=== PATIENT | female | born 1930 | race Caucasian/White ===

== ENCOUNTER 2017-04-19 16:06 | Inpatient (IN) | payer MEDICARE, MEDICAID ==
[~2017-04-19] VITALS: Ht 157.5 cm; Wt 42.4 kg
[2017-04-19 16:06] VITALS: BP 134/64
[2017-04-19 16:52] LABS: BILIRUBIN NEGATIVE (NEGATIVE); BLOOD TRACE-INTACT (NEGATIVE); CLARITY CLOUDY (CLEAR); COLOR YELLOW (YELLOW); GLUCOSE NEGATIVE (NEGATIVE); KETONE NEGATIVE (NEGATIVE); LEUKO ESTERASE 3+ (NEGATIVE); NITRITE NEGATIVE (NEGATIVE); PROTEIN 1+ (NEGATIVE)
[2017-04-19 17:02] LABS: RBC 0-2 rbc/hpf (0-2); WBC TNTC wbc/hpf (0-5)
[2017-04-19 17:03] LABS: BACTERIA 4+; URINE REFLEX COMMENT YES (NO)
[2017-04-19 17:12] VITALS: BP 124/62
[2017-04-19 17:21] LABS: BASO % 0.5 % (0.0-1.0); EOS % 0.4 % (1.0-4.0); HEMATOCRIT 40.7 % (37.0-47.0); HEMOGLOBIN 13.5 g/dl (12.0-16.0); LYMPH # 1.2 10*3/uL (1.3-4.4); LYMPH % 13.8 % (27.0-41.0); MEAN CELL VOLUME 97.1 fl (81.0-99.0); MEAN CORPUSCULAR HGB 32.2 pg (27.0-31.0); MEAN CORPUSCULAR HGB CONC 33.2 g/dl (33.0-37.0); MEAN PLATELET VOLUME 10.1 fl (9.6-12.3); MONO # 0.5 10*3/uL (0.1-1.0); MONO % 5.4 % (3.0-9.0); NEUT # 6.8 10*3/uL (2.3-7.9); NEUT % 79.7 % (47.0-73.0); PLATELET COUNT AUTOMATED 209 10*3/uL (130-400); RED BLOOD COUNT 4.19 10*6/uL (4.10-5.10); RED CELL DISTRI WIDTH 14.5 % (0-14.5); WHITE BLOOD COUNT 8.6 10*3/uL (4.8-10.8)
[2017-04-19 17:28] LABS: INTERNATIONAL NORM RATIO 1.1 (2.0-3.5); PROTHROMBIN TIME 11.4 SECONDS (9.0-12.4)
[2017-04-19 17:37] LABS: ALBUMIN 2.9 gm/dl (3.1-4.5); ALKALINE PHOSPHATASE 158 U/L (45-117); BILIRUBIN, TOTAL 0.5 mg/dl (0.2-1.0); BUN 12 mg/dl (7-24); CARBON DIOXIDE 31 mmol/L (21-32); CHLORIDE 101 mmol/L (98-107); EST GLOM FILT AFRICAN AMERICAN > 60 ml/min; GLUCOSE 235 mg/dL (65-99); POTASSIUM 3.1 mmol/L (3.5-5.1); SGOT/AST 45 IU/L (3-35); SGPT/ALT 44 U/L (12-78); SODIUM 140 mmol/L (136-145); TOTAL PROTEIN 6.8 gm/dL (6.4-8.2)
[2017-04-19 17:38] LABS: TROPONIN I < 0.015 ng/ml (<0.045)
[2017-04-19 19:13] VITALS: BP 138/69
[2017-04-19 20:43] VITALS: BP 164/79
[2017-04-19 21:00] VITALS: BP 164/62
[2017-04-19 21:20] VITALS: BP 164/62
[2017-04-20] VITALS (7 sets, daily range): BP systolic 118–160; BP diastolic 31–60
[2017-04-20 06:18] LABS: HEMOGLOBIN A1c 7.7 % (4.8-5.6)
[2017-04-20 06:27] LABS: ALBUMIN 2.8 gm/dl (3.1-4.5); ALKALINE PHOSPHATASE 160 U/L (45-117); BILIRUBIN, TOTAL 0.4 mg/dl (0.2-1.0); BUN 9 mg/dl (7-24); CARBON DIOXIDE 34 mmol/L (21-32); CHLORIDE 103 mmol/L (98-107); CHOLESTEROL 167 mg/dL (<200); EST GLOM FILT AFRICAN AMERICAN > 60 ml/min; FREE T4 1.06 ng/dl (0.76-1.46); GLUCOSE 229 mg/dL (65-99); HDL CHOLESTEROL 92 mg/dl (40-60); LDL CHOLESTEROL 53 mg/dL (9-159); MAGNESIUM 1.5 mg/dL (1.5-2.1); PHOSPHOROUS 2.3 mg/dL (2.5-4.9); POTASSIUM 2.8 mmol/L (3.5-5.1); SGOT/AST 31 IU/L (3-35); SGPT/ALT 44 U/L (12-78); SODIUM 143 mmol/L (136-145); TOTAL PROTEIN 6.9 gm/dL (6.4-8.2); TRIGLYCERIDES 108 mg/dl (<150); VLDL CHOLESTEROL 22 mg/dL (6-40)
[2017-04-20 06:31] LABS: THYROID STIM HORMONE (HS) 0.632 uIU/ml (0.358-4.75)
[2017-04-20 06:33] LABS: BASO # 0.1 10*3/uL (0.0-0.1); BASO % 0.9 % (0.0-1.0); EOS # 0.1 10*3/uL (0.0-0.4); EOS % 1.7 % (1.0-4.0); HEMOGLOBIN 13.6 g/dl (12.0-16.0); LYMPH # 1.1 10*3/uL (1.3-4.4); LYMPH % 17.3 % (27.0-41.0); MEAN CELL VOLUME 97.9 fl (81.0-99.0); MEAN CORPUSCULAR HGB 31.7 pg (27.0-31.0); MEAN CORPUSCULAR HGB CONC 32.4 g/dl (33.0-37.0); MONO # 0.4 10*3/uL (0.1-1.0); MONO % 5.8 % (3.0-9.0); NEUT # 4.9 10*3/uL (2.3-7.9); PLATELET COUNT AUTOMATED 223 10*3/uL (130-400); RED BLOOD COUNT 4.29 10*6/uL (4.10-5.10); RED CELL DISTRI WIDTH 14.6 % (0-14.5); WHITE BLOOD COUNT 6.6 10*3/uL (4.8-10.8)
[2017-04-20 06:47] LABS: FOLIC ACID 5.29 ng/mL (>5.38); VITAMIN D, 25-HYDROXY 11.1 ng/mL (30-100)
[2017-04-20 07:11] LABS: INTERNATIONAL NORM RATIO 1.1 (2.0-3.5); PROTHROMBIN TIME 11.4 SECONDS (9.0-12.4)
[2017-04-20] MEDS ORDERED: PRINIVIL10 MG PO (09:49)
[2017-04-20] MEDS ORDERED: NEXIUM40 MG PO (09:50)
[2017-04-20] MEDS ORDERED: ZOLOFT50 MG PO (09:50)
[2017-04-20] MEDS ORDERED: ANASTROZOLE1 M1 PO (09:50)
[2017-04-20] MEDS ORDERED: OXYCONTIN10 M1 PO (09:51)
[2017-04-20] MEDS ORDERED: DILANTIN100 MG PO (09:53)
[2017-04-20] MEDS ORDERED: LIPITOR80 MG PO (09:53)
[2017-04-20] MEDS ORDERED: ARICEPT10 M1 PO (09:56)
[2017-04-21] VITALS: BP 119/55
[2017-04-21 05:59] LABS: BASO # 0.1 10*3/uL (0.0-0.1); EOS # 0.1 10*3/uL (0.0-0.4); EOS % 2.7 % (1.0-4.0); HEMATOCRIT 36.2 % (37.0-47.0); HEMOGLOBIN 11.9 g/dl (12.0-16.0); LYMPH # 1.4 10*3/uL (1.3-4.4); LYMPH % 26.5 % (27.0-41.0); MEAN CORPUSCULAR HGB 32.9 pg (27.0-31.0); MEAN CORPUSCULAR HGB CONC 32.9 g/dl (33.0-37.0); MEAN PLATELET VOLUME 10.1 fl (9.6-12.3); MONO # 0.4 10*3/uL (0.1-1.0); MONO % 7.1 % (3.0-9.0); NEUT # 3.3 10*3/uL (2.3-7.9); NEUT % 62.7 % (47.0-73.0); PLATELET COUNT AUTOMATED 189 10*3/uL (130-400); RED BLOOD COUNT 3.62 10*6/uL (4.10-5.10); RED CELL DISTRI WIDTH 14.8 % (0-14.5); WHITE BLOOD COUNT 5.2 10*3/uL (4.8-10.8)
[2017-04-21 06:30] LABS: BUN 8 mg/dl (7-24); CARBON DIOXIDE 29 mmol/L (21-32); CHLORIDE 107 mmol/L (98-107); EST GLOM FILT AFRICAN AMERICAN > 60 ml/min; GLUCOSE 229 mg/dL (65-99); MAGNESIUM 1.4 mg/dL (1.5-2.1); PHOSPHOROUS 2.1 mg/dL (2.5-4.9); SODIUM 143 mmol/L (136-145)
[2017-04-21 06:31] LABS: POTASSIUM 3.8 mmol/L (3.5-5.1)
[2017-04-21 08:00] VITALS: BP 118/62
[2017-04-21 12:00] VITALS: BP 165/69
[2017-04-21 16:00] VITALS: BP 146/65
[2017-04-21 20:00] VITALS: BP 112/50
[2017-04-22] VITALS: BP 107/53
[2017-04-22 07:02] LABS: BASO # 0.1 10*3/uL (0.0-0.1); EOS # 0.2 10*3/uL (0.0-0.4); EOS % 4.6 % (1.0-4.0); HEMATOCRIT 39.8 % (37.0-47.0); HEMOGLOBIN 12.7 g/dl (12.0-16.0); LYMPH # 1.6 10*3/uL (1.3-4.4); LYMPH % 33.5 % (27.0-41.0); MEAN CELL VOLUME 100.5 fl (81.0-99.0); MEAN CORPUSCULAR HGB 32.1 pg (27.0-31.0); MEAN CORPUSCULAR HGB CONC 31.9 g/dl (33.0-37.0); MEAN PLATELET VOLUME 10.4 fl (9.6-12.3); MONO # 0.1 10*3/uL (0.1-1.0); MONO % 2.3 % (3.0-9.0); NEUT # 2.8 10*3/uL (2.3-7.9); NEUT % 58.2 % (47.0-73.0); PLATELET COUNT AUTOMATED 202 10*3/uL (130-400); RED BLOOD COUNT 3.96 10*6/uL (4.10-5.10); WHITE BLOOD COUNT 4.8 10*3/uL (4.8-10.8)
[2017-04-22 07:30] LABS: BUN 9 mg/dl (7-24); CARBON DIOXIDE 27 mmol/L (21-32); CHLORIDE 107 mmol/L (98-107); GLUCOSE 154 mg/dL (65-99); POTASSIUM 3.5 mmol/L (3.5-5.1); SODIUM 142 mmol/L (136-145)
[2017-04-22 07:37] LABS: EST GLOM FILT AFRICAN AMERICAN > 60 ml/min; PHOSPHOROUS 1.9 mg/dL (2.5-4.9)
[2017-04-22 08:00] VITALS: BP 146/50
[2017-04-22] MEDS ORDERED: D-1000 185 MG-11 TAB PO (09:52)
[2017-04-22] MEDS ORDERED: NATURE'S BLEND F1 MG PO (09:52)
[2017-04-22] MEDS ORDERED: OXYBUTYNIN CHLOR5 MG PO (09:52)
[2017-04-22] MEDS ORDERED: ZYVOX600 MG PO (09:54)
[2017-04-22 12:00] VITALS: BP 155/60
[2017-04-22 16:00] VITALS: BP 147/61
[2017-04-22 20:00] VITALS: BP 150/68
[2017-04-23] VITALS: BP 102/54; BP 97/53
[2017-04-23 08:00] VITALS: BP 112/90
== END 2017-04-23 11:29 | disposition other institution (70) | DRG 689 ==
LOC: ED 16:06 → 5E 19:52 → EDHOLD 19:52 → 5E 20:07
PROVIDERS: Family Medicine; Internal Medicine Nephrology; Nurse Practitioner Family
DX: N39.0 Urinary tract infection, site not specified (principal); G93.41 Metabolic encephalopathy; E44.0 Moderate protein-calorie malnutrition; F03.91 Unspecified dementia, unspecified severity, with behavioral disturbance; Z68.1 Body mass index [BMI] 19.9 or less, adult; E87.6 Hypokalemia; R73.9 Hyperglycemia, unspecified; R00.1 Bradycardia, unspecified; I10 Essential (primary) hypertension; B95.2 Enterococcus as the cause of diseases classified elsewhere; K21.9 Gastro-esophageal reflux disease without esophagitis; B96.89 Other specified bacterial agents as the cause of diseases classified elsewhere; Z88.5 Allergy status to narcotic agent; Z79.1 Long term (current) use of non-steroidal anti-inflammatories (NSAID); Z79.899 Other long term (current) drug therapy; E53.8 Deficiency of other specified B group vitamins; E55.9 Vitamin D deficiency, unspecified

== ENCOUNTER 2017-06-22 16:09 | Inpatient (IN) | payer MEDICARE, MEDICAID ==
[~2017-06-22] VITALS: Ht 154.9 cm; Wt 57.7 kg
[2017-06-22 16:09] VITALS: BP 106/66
[~2017-06-22 16:09] MED LIST: ANASTROZOLE1 M1 PO; ARICEPT10 M1 PO; D-1000 185 MG-11 TAB PO; DILANTIN100 MG PO; LIPITOR80 MG PO; NATURE'S BLEND F1 MG PO; NEXIUM40 MG PO; OXYBUTYNIN CHLOR5 MG PO; OXYCONTIN10 M1 PO; PRINIVIL10 MG PO; ZOLOFT50 MG PO; ZYVOX600 MG PO
[2017-06-22 16:43] LABS: BASO # 0.1 10*3/uL (0.0-0.1); BASO % 0.7 % (0.0-1.0); EOS # 0.1 10*3/uL (0.0-0.4); HEMATOCRIT 34.8 % (37.0-47.0); HEMOGLOBIN 11.6 g/dl (12.0-16.0); LYMPH # 1.8 10*3/uL (1.3-4.4); MEAN CELL VOLUME 98.3 fl (81.0-99.0); MEAN CORPUSCULAR HGB 32.8 pg (27.0-31.0); MEAN CORPUSCULAR HGB CONC 33.3 g/dl (33.0-37.0); MEAN PLATELET VOLUME 9.7 fl (9.6-12.3); MONO # 0.4 10*3/uL (0.1-1.0); MONO % 4.9 % (3.0-9.0); NEUT # 4.8 10*3/uL (2.3-7.9); NEUT % 67.1 % (47.0-73.0); PLATELET COUNT AUTOMATED 272 10*3/uL (130-400); RED BLOOD COUNT 3.54 10*6/uL (4.10-5.10); RED CELL DISTRI WIDTH 14.6 % (0-14.5); WHITE BLOOD COUNT 7.2 10*3/uL (4.8-10.8)
[2017-06-22 16:52] LABS: ACT PARTIAL THROMBO TIME 24.2 SECONDS (20.8-31.5); INTERNATIONAL NORM RATIO 1.1 (2.0-3.5)
[2017-06-22 16:59] LABS: ALBUMIN 2.7 gm/dl (3.1-4.5); ALKALINE PHOSPHATASE 121 U/L (45-117); BUN 14 mg/dl (7-24); CHLORIDE 101 mmol/L (98-107); CREATININE 0.49 mg/dL (0.55-1.02); LIPASE 215 U/L (73-393); MAGNESIUM 1.7 mg/dL (1.5-2.1); POTASSIUM 2.9 mmol/L (3.5-5.1); SGOT/AST 25 IU/L (3-35); SGPT/ALT 24 U/L (12-78); SODIUM 139 mmol/L (136-145); TOTAL PROTEIN 6.5 gm/dL (6.4-8.2)
[2017-06-22 17:00] LABS: TROPONIN I < 0.015 ng/ml (<0.045)
[2017-06-22 17:08] LABS: BILIRUBIN NEGATIVE (NEGATIVE); BLOOD TRACE-INTACT (NEGATIVE); CLARITY CLOUDY (CLEAR); COLOR YELLOW (YELLOW); GLUCOSE 3+ (NEGATIVE); KETONE NEGATIVE (NEGATIVE); LEUKO ESTERASE 2+ (NEGATIVE); NITRITE POSITIVE (NEGATIVE); PH 5.5 (5.0-9.0); SPECIFIC GRAVITY 1.015 (1.005-1.030); UROBILINOGEN 0.2 E.U./dl (0.2-1.0)
[2017-06-22 17:09] LABS: PHENYTOIN (DILANTIN) 27.4 ug/ml (10-20)
[2017-06-22 17:22] LABS: BACTERIA 4+; EPITHELIAL CELLS 0-2; RBC 0-2 rbc/hpf (0-2); WBC 31-40 wbc/hpf (0-5)
--- NOTE | 2017-06-22 18:18 | NUR ---
[facility] STOP TIME WILL [id number]. SALINE INFUSING AT TIME OF ADMISSION.
--- NOTE | 2017-06-22 19:30 | NUR ---
A 86, admitted to 5E, under the services of NORMA Green DO with a diagnosis of UTI, METABOLIC ENCEPHALOPATHY. Chief complaint is INCREASED CONFUSION. Patient arrived via ambulance from ER. Monitor applied. Initial assessment completed. Vital signs taken and recorded. NORMA GREEN DO notified of admission to the unit. Orders received. See assessment for past medical history, medications and allergies. Patient and/or family oriented to unit. [facility] visitation policy reviewed. Clothing/patient valuable form completed. SOREN SUAREZ
[2017-06-22 20:00] VITALS: BP 136/55
[2017-06-22] MEDS ORDERED: OXYBUTYNIN10 MG PO (20:24)
[2017-06-22] MEDS ORDERED: ASPIRIN CHEWABL81 MG PO (20:25)
--- NOTE | 2017-06-22 20:29 | NUR ---
DR BRIONES UPDATED ON PT'S STATUS, CONFUSED, PULLED IV OUT,PULLING AT HYDE CATHETER, AND MONITOR. UPDATED THAT I DID SPEAK WITH DAUGHTER, PT DOES NOT HAVE LIVING WILL OR POA, AND PT DOES WISH TO BE FULL CODE. PT MED REC IS UP TO DATE PER LIST PROVIDED BY DAUGHTER.
--- NOTE | 2017-06-22 23:46 | NUR ---
DR BRIONES NOTIFIED OF PT'S STATUS AND PT'S TEMP OF 95.7 RECTALLY. HE STATED TO WAIT 5 MINUTES AND RECHECK HER AND IF SHE IS STILL LOW TO PLACE PT ON WARMING BLANKET.
[2017-06-23] VITALS: BP 129/85
--- NOTE | 2017-06-23 00:30 | NUR ---
DR BRIONES HERE TO SEE PT AT THIS TIME. RECHECKED PT'S RECTAL TEMP, 93.8. PLACED PT ON WARMING BLANKET PER ORDER.
--- NOTE | 2017-06-23 01:09 | NUR ---
PT'S TEMP IS UP MINIMALLY, 94.7 RECTALLY. PT REMAINS ON THE WARMING BLANKET. DR BRIONES HERE AT THIS TIME. STATES TO START PT ON WARM IV FLUIDS.
--- NOTE | 2017-06-23 01:55 | NUR ---
PT REMAINS ON WARMING BLANKET, PT'S TEMP NOW 95.7 RECTALLY. STARTED PT ON WARM NORMAL SALINE AT 100ML/ HR, PER ORDER. CONTINUE TO CLOSELY MONITOR PT.
--- NOTE | 2017-06-23 03:40 | NUR ---
PT REMAINS ON WARMING BLANKET AND WARMED IV FLUIDS, RECTAL TEMP NOW 97.6.
[2017-06-23 04:00] VITALS: BP 138/73
--- NOTE | 2017-06-23 04:38 | NUR ---
DR BRIONES NOTIFIED OF PT'S TEMP OF 98.5 RECTALLY. ORDERS RECEIVED TO STOP THE WARM SALINE, TO CONTINUE PT ON THE WARMING BLANKET.
[2017-06-23 06:36] LABS: BASO # 0.1 10*3/uL (0.0-0.1); BASO % 0.6 % (0.0-1.0); EOS # 0.2 10*3/uL (0.0-0.4); HEMATOCRIT 34.3 % (37.0-47.0); HEMOGLOBIN 11.6 g/dl (12.0-16.0); LYMPH # 1.2 10*3/uL (1.3-4.4); LYMPH % 12.1 % (27.0-41.0); MEAN CELL VOLUME 98.3 fl (81.0-99.0); MEAN CORPUSCULAR HGB 33.2 pg (27.0-31.0); MEAN CORPUSCULAR HGB CONC 33.8 g/dl (33.0-37.0); MEAN PLATELET VOLUME 9.5 fl (9.6-12.3); MONO # 0.6 10*3/uL (0.1-1.0); MONO % 5.4 % (3.0-9.0); NEUT # 8.2 10*3/uL (2.3-7.9); NEUT % 79.6 % (47.0-73.0); PLATELET COUNT AUTOMATED 250 10*3/uL (130-400); RED BLOOD COUNT 3.49 10*6/uL (4.10-5.10); RED CELL DISTRI WIDTH 14.6 % (0-14.5); WHITE BLOOD COUNT 10.3 10*3/uL (4.8-10.8)
[2017-06-23 06:43] LABS: ALBUMIN 2.7 gm/dl (3.1-4.5); ALKALINE PHOSPHATASE 120 U/L (45-117); BUN 10 mg/dl (7-24); CHLORIDE 106 mmol/L (98-107); CHOLESTEROL 159 mg/dL (<200); CREATININE 0.32 mg/dL (0.55-1.02); HDL CHOLESTEROL 83 mg/dl (40-60); LDL CHOLESTEROL 62 mg/dL (9-159); MAGNESIUM 1.7 mg/dL (1.5-2.1); PHOSPHOROUS 2.4 mg/dL (2.5-4.9); POTASSIUM 2.8 mmol/L (3.5-5.1); SGOT/AST 24 IU/L (3-35); SGPT/ALT 24 U/L (12-78); SODIUM 144 mmol/L (136-145); TOTAL PROTEIN 6.2 gm/dL (6.4-8.2); TRIGLYCERIDES 68 mg/dl (<150); VLDL CHOLESTEROL 14 mg/dL (6-40)
[2017-06-23 06:49] LABS: PHENYTOIN (DILANTIN) 22.4 ug/ml (10-20)
[2017-06-23 07:07] LABS: ACT PARTIAL THROMBO TIME 24.3 SECONDS (20.8-31.5); INTERNATIONAL NORM RATIO 1.1 (2.0-3.5)
[2017-06-23 07:50] LABS: VITAMIN D, 25-HYDROXY 12.1 ng/mL (30-100)
[2017-06-23 08:00] VITALS: BP 134/62
--- NOTE | 2017-06-23 10:00 | NUR ---
ATTEMPTED TO REACH FAMILY MEMBER FOR CONSENT FOR WOUND PHOTOS & UNABLE TO REACH ANYONE. NOTIFIED
--- NOTE | 2017-06-23 11:19 | NUR ---
PHYSICAL THERAPy PAtient not medically appropriate this date. Will attempt at a later date. Thank you for this referral. Silvina Fountain,PT
[2017-06-23 12:00] VITALS: BP 114/50
--- NOTE | 2017-06-23 12:19 | NUR ---
Patient came from home. Currently lives with daughter and son in-law. Called and spoke with son in-law who stated patient was in [facility] for a couple of weeks in March, but was discharged to home with family and when she is discharged, she will be returning home with them; refusing detention placement. Denies any other needs at this time.
--- NOTE | 2017-06-23 14:34 | NUR ---
MARINO MCKEON [id number] Please refer to the physician's history and physical for past medical history, comorbid conditions, and allergies. Diagnosis: UTI DILANTIN TOXICITY, METABOLIC ENCEPHALOPATHY Percy Score: 10,HIGH RISK WOUND DESCRIPTIONS: Location of the wound: left medial arm Type of wound: skin tear Thickness: partial Size: 0.2cm x 1.5cm x 0.1cm Tunneling: none Undermining: none Sinus Tract: none Presence of Exudate: none Amount: None Color: Red Odor: None Periwound Skin Appearance: Normal Wound edges: approximated Pain (associated with wound): none at time of assessment How does patient state this happened? pt unable to state how this happened Location of the wound: lateral left arm Type of wound: skin tear Thickness: Partial Size: 0.6cm x 0.2cm x 0.1cm Tunneling: none Undermining: none Sinus Tract: none Presence of Exudate: Amount: None Color: Red Odor: None Periwound Skin Appearance: Normal Wound edges: approximated Pain (associated with wound): none at time of assessment How does patient state this happened? pt unable to state how this happened Surface the patient is resting on: Isoflex SKIN PREVENTION RECOMMENDATION: 1. Pressure redistribution support surface as appropriate 2. Elevate heels 3. Remove boots/TEDS every shift and reapply 4. Head of bed 30 degrees as tolerated 5. Assess nutrition and hydration 6. Manage moisture 7. Avoid the use of containment devices while in bed 8. Use absorptive products on surfaces limit layers of linens on bed 9. Turn and reposition every 1-2 hours in bed and every 1 hour in chair as tolerated 10. Weight shifts every 15 minutes while up in chair 11. Offloading with pillows or device to keep heels elevated off bed 12. Monitor skin at least every shift 13. Inspect under medical devices twice a day WOUND TREATMENT RECOMMENDATIONS: Skin tear guidelines for both areas nss sureprep around wound hydrogel to wound bed cover with optifoam gentle.
[2017-06-23 16:00] VITALS: BP 146/76
[2017-06-23 20:00] VITALS: BP 131/88
--- NOTE | 2017-06-23 20:00 | NUR ---
IN TO ASSESS PATIENT. PATIENT CONFUSED AND CRYING. REORIENTED PATIENT TO HOSPITAL. PATIENT THEN SMILED. ONLY ALERT TO SELF. BREATHING IS EASY AND REGULAR ON ROOM AIR. DIMINISHED LUNGS T/O. PATIENT INCONTINENT OF URINE. NORMOACTIVE BOWELS X4 QUADS. IV FLUIDS INFUSING AT 100ML/HR. NO EDEMA NOTED. CALL LIGHT WITHIN REACH, WILL MONITOR
--- NOTE | 2017-06-23 23:00 | NUR ---
PATIENT MOVED TO 508 AT THIS TIME
[2017-06-24] VITALS: BP 122/52
--- NOTE | 2017-06-24 00:26 | NUR ---
24 HR chart check completed.
[2017-06-24 08:00] VITALS: BP 140/50
[2017-06-24 10:02] LABS: BUN 11 mg/dl (7-24); CHLORIDE 105 mmol/L (98-107); PHENYTOIN (DILANTIN) 15.8 ug/ml (10-20); POTASSIUM 3.7 mmol/L (3.5-5.1); SODIUM 144 mmol/L (136-145)
--- NOTE | 2017-06-24 10:27 | NUR ---
PT IN TO SEE PATIENT AT THIS TIME.
--- NOTE | 2017-06-24 10:54 | NUR ---
PHYSICAL THERAPY Patient evaluated on 5, full evaluation to follow. Continue with PT as per plan of care with fall, max (A) and acute debility precautions. Recommend SNF, family refuses- will require 24/7 care of famnily at home as well as complete home health services. PAtient is moderate complexity via chart review, tests and evaluation: 94994. Thank you for this referral. Silvina Fountain,PT
[2017-06-24] MEDS ORDERED: CEFUROXIME AXE500 MG PO (11:51)
[2017-06-24 12:00] VITALS: BP 106/52
--- NOTE | 2017-06-24 12:55 | NUR ---
FAMILY NOTIFIED REGARDING DISCHARGE AND WILL BE HERE IN A COUPLE OF HOURS TO TAKE PATIENT HOME.
--- NOTE | 2017-06-24 13:52 | NUR ---
FLU VACCINE GIVEN TO PATIENT PRIOR TO DISCHARGE. FLU VACCINE ADMINISTERED VIA RIGHT DELTOID.
--- NOTE | 2017-06-24 14:18 | NUR ---
Discharge instructions reviewed with patient/family. Patient receptive and verbalizes understanding. Follow-up care arranged. Written instructions given to patient/family. MELITON MANN.
== END 2017-06-24 14:35 | disposition home or self-care (01) | DRG 917 ==
LOC: ED 16:09 → 5E 18:02 → EDHOLD 18:02 → 5E 18:24
PROVIDERS: Emergency Medicine; Family Medicine; Hospitalist; ADMIT Internal Medicine
DX: T42.0X1A Poisoning by hydantoin derivatives, accidental (unintentional), initial encounter (principal); G93.41 Metabolic encephalopathy; E43 Unspecified severe protein-calorie malnutrition; N39.0 Urinary tract infection, site not specified; F03.91 Unspecified dementia, unspecified severity, with behavioral disturbance; T68.XXXA Hypothermia, initial encounter; I10 Essential (primary) hypertension; K21.9 Gastro-esophageal reflux disease without esophagitis; E53.8 Deficiency of other specified B group vitamins; E55.9 Vitamin D deficiency, unspecified; B99.8 Other infectious disease; E87.6 Hypokalemia; Y92.89 Other specified places as the place of occurrence of the external cause; Z79.82 Long term (current) use of aspirin; Z79.899 Other long term (current) drug therapy; Z88.5 Allergy status to narcotic agent; Z68.24 Body mass index [BMI] 24.0-24.9, adult

== ENCOUNTER 2017-08-04 14:09 | Inpatient (IN) | payer MEDICARE, MEDICAID ==
[~2017-08-04] VITALS: Ht 152 cm; Wt 46.5 kg
--- NOTE | ~2017-08-04 | CON ---
[place], [place] REPORT OF CONSULTATION NAME: MARINO MCKEON UNIT #: [id number] ROOM: 422 DOCTOR: DEIDRE VIGIL MD BIRTHDATE: [birth year] DOS: 08/06/2017 CHIEF COMPLAINT: "I hurt my leg that is why I am here." HISTORY OF PRESENT ILLNESS: This is an 87-year-old white female who presented to the emergency room at [facility] from her home accompanied by family after a fall. The patient has had a history of frequent UTIs that have been associated with worsening confusion. Family did report that through the emergency room physician that the patient has become increasingly more forgetful and has not been able to attend to her ADLs. They are fearful that she does require some type of long-term care placement as she is not adequately able to meet her needs and the family is having an increased time trying to meet her needs because of the confusion. PAST MEDICAL HISTORY: Remarkable for bradycardia, dementia, folate deficiency, GERD, hypertension, severe protein-calorie malnutrition, vitamin D deficiency and depression. The patient also has a history to opiate agonist. MENTAL STATUS: The patient is alert and oriented to person, place, but not time. Mood does seem to be depressed with some anxious overtones. Her responses tended to be short and simple, at times evasive. She is rather flat and blunted. There is no agitation or aggression. There are no overt auditory or visual hallucinations, delusions or paranoia. There is no hypomania or do. Short term memory is exceedingly poor. DIAGNOSES: Major depression, recurrent and Alzheimer dementia. PLAN: I will switch her off of Zoloft on to Remeron. SSRIs tend to lose efficacy in the elderly. The Remeron should dramatically improve sleep and appetite and should sustain efficacy. She is already on a good dose of donepezil. I will augment this with Namenda 5 mg a day, planning to gradually increase this to its maximum dose of 10 mg b.i.d. I do agree the placement is warranted at this point if for no other option than a 30 day stay to see if her confusion improves or not. DEIDRE VIGIL MD CM:CONSTR:REPORT OF CONSULTATION 1001 08/06/17 2171 interface
[~2017-08-04 14:09] MED LIST changes: +ASPIRIN CHEWABL81 MG PO; +CEFUROXIME AXE500 MG PO; +OXYBUTYNIN10 MG PO
[2017-08-04 14:18] VITALS: BP 138/98
[2017-08-04 15:08] LABS: BASO # 0.1 10*3/uL (0.0-0.1); BASO % 0.8 % (0.0-1.0); EOS # 0.2 10*3/uL (0.0-0.4); EOS % 1.7 % (1.0-4.0); HEMATOCRIT 38.5 % (37.0-47.0); HEMOGLOBIN 12.9 g/dl (12.0-16.0); LYMPH # 1.2 10*3/uL (1.3-4.4); LYMPH % 13.6 % (27.0-41.0); MEAN CELL VOLUME 98.7 fl (81.0-99.0); MEAN CORPUSCULAR HGB 33.1 pg (27.0-31.0); MEAN CORPUSCULAR HGB CONC 33.5 g/dl (33.0-37.0); MEAN PLATELET VOLUME 10.1 fl (9.6-12.3); MONO # 0.4 10*3/uL (0.1-1.0); MONO % 4.6 % (3.0-9.0); NEUT # 6.8 10*3/uL (2.3-7.9); PLATELET COUNT AUTOMATED 179 10*3/uL (130-400); RED CELL DISTRI WIDTH 14.3 % (0-14.5); WHITE BLOOD COUNT 8.7 10*3/uL (4.8-10.8)
[2017-08-04 15:26] LABS: ALBUMIN 3.2 gm/dl (3.1-4.5); ALKALINE PHOSPHATASE 135 U/L (45-117); BUN 14 mg/dl (7-24); CHLORIDE 101 mmol/L (98-107); POTASSIUM 2.8 mmol/L (3.5-5.1); SGOT/AST 40 IU/L (3-35); SGPT/ALT 38 U/L (12-78); SODIUM 142 mmol/L (136-145); TOTAL PROTEIN 7.2 gm/dL (6.4-8.2)
[2017-08-04 15:33] LABS: INTERNATIONAL NORM RATIO 1.1 (2.0-3.5); TROPONIN I < 0.015 ng/ml (<0.045)
[2017-08-04 16:06] LABS: BILIRUBIN NEGATIVE (NEGATIVE); BLOOD TRACE-INTACT (NEGATIVE); CLARITY SL CLOUDY (CLEAR); COLOR YELLOW (YELLOW); GLUCOSE NEGATIVE (NEGATIVE); KETONE NEGATIVE (NEGATIVE); LEUKO ESTERASE 2+ (NEGATIVE); NITRITE NEGATIVE (NEGATIVE); PH 6.5 (5.0-9.0); UROBILINOGEN 0.2 E.U./dl (0.2-1.0)
[2017-08-04 16:25] LABS: BACTERIA 4+
[2017-08-04 16:26] LABS: WBC 51-100 wbc/hpf (0-5)
[2017-08-04 16:33] LABS: EPITHELIAL CELLS 0-2
--- NOTE | 2017-08-04 17:51 | NUR ---
IV ACCESS OBTAINED AFTER SEVERAL ATTEMPTS BY MULTIPLE RNS. LALO EDWARDS RN
[2017-08-04 18:09] VITALS: BP 143/75
--- NOTE | 2017-08-04 18:11 | NUR ---
IV SITE INFILTRATED WITH NS FLUSH. SWELLING NOTED.
--- NOTE | 2017-08-04 18:21 | NUR ---
PHYSICIAN AT BEDSIDE TO PLACE CENTRAL LINE. MULTIPLE UNSUCCESSFUL ATTEMPTS AT OBTAINING A PERIPHERAL IV. ULTRASOUND GUIDED WAS USED TO OBTAIN IV ACCESS, WHICH SUBSEQUENTLY INFILTRATED.
[2017-08-04 18:45] VITALS: BP 147/75
--- NOTE | 2017-08-04 18:51 | NUR ---
24 HR chart check completed.
[2017-08-04 19:04] VITALS: BP 144/74
--- NOTE | 2017-08-04 19:45 | NUR ---
DR FITZGERALD WITH XIMENA RN ATTEMPTING CENTRAL LINE PLACEMENT AT THIS TIME. MULTIPLE ATTEMPTS PER PREVIUS SHIFT TO OBTAIN IV ACCESS. PT VSS. AND TOLERATEING WELL
--- NOTE | 2017-08-04 19:56 | NUR ---
CONSENT FOR CENTRAL LINE PLACEMENT CONFIRMED VIA TELEPHONE 2 RNS VERIFY CONSENT PROCEEDURE WAS EXPLAINED BY TO SUELLEN CACERES DTR PRIOR TO PROCEEDURE
[2017-08-04 20:04] VITALS: BP 165/75
--- NOTE | 2017-08-04 21:43 | NUR ---
PATIENT LAYING IN BED, RESPIRATIONS EASY AND REGULAR. CALL LIGHT WITHIN REACH. 2X SIDE RAILS RAISED AND LIGHTS DIMMED. PATIENT IN VIEW OF NURSE'S STATION. WILL CONTINUE TO MONITOR.
[2017-08-04 22:30] VITALS: BP 142/86
--- NOTE | 2017-08-04 22:30 | NUR ---
A 87, admitted to , under the services of BÁRBARA Juares DO with a diagnosis of UTI, METABOLIC ENCEPHALOPATHY, CONFUSION, HYPOKALEMIA. Chief complaint is FELL AT HOME, FOUL SMELLING URINE, INCREASED CONFUSION'. Patient arrived via stretcher from ER. Monitor applied. Initial assessment completed. Vital signs taken and recorded. DR. MARTINEZ notified of admission to the unit. Orders received. See assessment for past medical history, medications and allergies. Patient and/or family oriented to unit. [facility] visitation policy reviewed. Clothing/patient valuable form completed. BERKLEY LEVIN
--- NOTE | 2017-08-04 22:49 | NUR ---
PT CENTRAL LINE PLACED TO RT FEMORAL AREA. ORDERING ERROR CAUSED FOR A DELAY IN READING XRAY REPORT. DR LAUREANO PERSONALLY READ. XRAY. LINE FLUSHES EASILY AND GREAT BLOOD RETURN. SITE ASYMPTOMATIC. REPORT CALLED TO BERKLEY GUO AND PT TRANSPORTED UPSTAIRS TO 421 AT THIS TIME
[2017-08-05] VITALS: BP 142/55
--- NOTE | 2017-08-05 00:18 | NUR ---
PATIENT IS A POOR HISTORIAN. SHE DOES NOT KNOW HOME MEDICATIONS. MED REC WAS UPDATED ACCORDING TO DIRECTIONS ON LAST DISCHARGE SUMMARY. THE DATE LISTED ON DISCHARGE SUMMARY IS 06/24/17. WILL NOTIFY DR. MARTINEZ.
--- NOTE | 2017-08-05 00:23 | NUR ---
DR. MARTINEZ REQUESTING MEDS BE VERIFIED WITH THE PHARMACY IN AM. KUB RESULTS WERE ALSO REPORTED TO DR. MARTINEZ.
--- NOTE | 2017-08-05 05:36 | NUR ---
PATIENT TRANSPORTED TO CT.
[2017-08-05 06:59] LABS: BASO # 0.1 10*3/uL (0.0-0.1); BASO % 0.7 % (0.0-1.0); EOS # 0.2 10*3/uL (0.0-0.4); EOS % 1.9 % (1.0-4.0); HEMATOCRIT 35.3 % (37.0-47.0); HEMOGLOBIN 11.6 g/dl (12.0-16.0); LYMPH # 1.2 10*3/uL (1.3-4.4); LYMPH % 11.8 % (27.0-41.0); MEAN CELL VOLUME 99.2 fl (81.0-99.0); MEAN CORPUSCULAR HGB 32.6 pg (27.0-31.0); MEAN CORPUSCULAR HGB CONC 32.9 g/dl (33.0-37.0); MEAN PLATELET VOLUME 10.2 fl (9.6-12.3); MONO # 0.7 10*3/uL (0.1-1.0); MONO % 6.9 % (3.0-9.0); NEUT # 7.9 10*3/uL (2.3-7.9); NEUT % 78.4 % (47.0-73.0); PLATELET COUNT AUTOMATED 159 10*3/uL (130-400); RED BLOOD COUNT 3.56 10*6/uL (4.10-5.10); RED CELL DISTRI WIDTH 14.2 % (0-14.5); WHITE BLOOD COUNT 10.1 10*3/uL (4.8-10.8)
[2017-08-05 07:12] LABS: ACT PARTIAL THROMBO TIME 28.1 SECONDS (20.8-31.5); INTERNATIONAL NORM RATIO 1.1 (2.0-3.5)
[2017-08-05 07:28] LABS: BUN 10 mg/dl (7-24); CHLORIDE 101 mmol/L (98-107); CREATININE 0.41 mg/dL (0.55-1.02); POTASSIUM 2.8 mmol/L (3.5-5.1); SODIUM 141 mmol/L (136-145)
[2017-08-05 07:34] LABS: THYROID STIM HORMONE (HS) 0.618 uIU/ml (0.358-4.75)
[2017-08-05 08:00] VITALS: BP 144/70
--- NOTE | 2017-08-05 09:23 | NUR ---
PATIENT PULLED OUT CENTRAL LINE BLEEDING CONTROLLED DR GRIGGS MADE AWARE
--- NOTE | 2017-08-05 09:55 | NUR ---
SPOKE WITH DR LOPEZ ABOUT PATIENT HAVING A VERY LARGE BM AND CONTINUES TO. STATES TO HOLD OFF ON JAHDI CONSULT FOR NOW. WILL CONTINUE TO MONITOR PATIENTS BM
--- NOTE | 2017-08-05 10:07 | NUR ---
Attempted to call patients daughter to discuss discharge plans, unable to contact. Left for return call.
[2017-08-05] MEDS ORDERED: ZOLOFT100 MG PO (10:17)
--- NOTE | 2017-08-05 11:41 | NUR ---
PHYSICAL THERAPY Patient evalauted on 4, full evaluation to follow. Continue with PT as per plan of care with fall, alarms, max (A) x 2 and resists most mobility precautions. LTAC versus 19/04 family assist and complete home health services. PAtient is high complexity via chart review, tests and evaluation: 93013. Thank you for this referral. Silvina Fountain,PT
[2017-08-05 12:00] VITALS: BP 136/68
--- NOTE | 2017-08-05 13:38 | NUR ---
Occupational Therapy evaluation completed this date on 4 with full eval to follow. Precautions include fall risk, poor arousal state, dependent ADLs, poor sit balance, impaired cognition, high complexity level 09527. Recommend OT per POC and SNF upon d/c to enable eventual return home with family as able. Thank you for this referral. Kayley Swan OTR/l
--- NOTE | 2017-08-05 14:48 | NUR ---
PATIENT HAD ANOTHER LARGE BM
--- NOTE | 2017-08-05 14:50 | NUR ---
24 HR chart check completed.
--- NOTE | 2017-08-05 15:08 | NUR ---
Talked to daughter of patient who stated she would like patient referred to [facility] [place] for snf stay. Patient has been there in the past. Contacted [facility] and faxed referral. Waiting on accptance.
[2017-08-05 16:00] VITALS: BP 120/50
--- NOTE | 2017-08-05 16:00 | NUR ---
PT MEDICATED WITH TYLENOL FOR C/O BODY ACHES AND PAIN WHILE TURNING AND POSITIONING.
[2017-08-05 20:00] VITALS: BP 108/49
--- NOTE | 2017-08-05 23:13 | NUR ---
SPOKE WITH DR. BAE AT THIS TIME, THIS NURSE STATED THAT THE PATIENT IS ON DILANTIN AND HAS NOT HAD A LEVEL DRAWN SINCE . DR. BAE ASK IF THE PATIENT IS ALTERED MENTALLY OR ANYTHING ELSE. THIS NURSE STATED SHE IS ALWAYS ALTERED AND THAT IS HER BASELINE. DR. BAE STATED NOT TO WORRY ABOUT GETTING THE LAB AT THIS TIME
[2017-08-06] VITALS: BP 128/53
--- NOTE | 2017-08-06 03:40 | NUR ---
patient yelling "get out" "i cant take it anymore" and picking at her skin. on assessment she was found to have a 0.8 x 0.8 x 0.1 on her right forearm. Nolberto Kim was notified of the skin tear and the patients anxiety. she ordered 2.5 mg of halidol given now for the anxiety and had no orders for the skin tear.
[2017-08-06 05:51] LABS: BUN 10 mg/dl (7-24); CHLORIDE 102 mmol/L (98-107); CREATININE 0.59 mg/dL (0.55-1.02)
[2017-08-06 05:55] LABS: BASO % 0.4 % (0.0-1.0); EOS # 0.2 10*3/uL (0.0-0.4); EOS % 2.6 % (1.0-4.0); HEMATOCRIT 37.3 % (37.0-47.0); HEMOGLOBIN 12.2 g/dl (12.0-16.0); LYMPH # 1.4 10*3/uL (1.3-4.4); MEAN CORPUSCULAR HGB 32.7 pg (27.0-31.0); MEAN CORPUSCULAR HGB CONC 32.7 g/dl (33.0-37.0); MEAN PLATELET VOLUME 10.9 fl (9.6-12.3); MONO # 0.6 10*3/uL (0.1-1.0); MONO % 6.9 % (3.0-9.0); NEUT # 6.8 10*3/uL (2.3-7.9); NEUT % 74.7 % (47.0-73.0); PLATELET COUNT AUTOMATED 160 10*3/uL (130-400); RED BLOOD COUNT 3.73 10*6/uL (4.10-5.10); RED CELL DISTRI WIDTH 14.5 % (0-14.5); WHITE BLOOD COUNT 9.1 10*3/uL (4.8-10.8)
[2017-08-06 06:06] LABS: SODIUM 141 mmol/L (136-145)
[2017-08-06 06:12] LABS: POTASSIUM 3.9 mmol/L (3.5-5.1)
--- NOTE | 2017-08-06 07:09 | NUR ---
daughter was contacted at this time to notify her about the skin tear she acquired last night. consent was obtained and verified by maureen hernandez rn.
[2017-08-06 08:00] VITALS: BP 106/71
--- NOTE | 2017-08-06 08:00 | NUR ---
IN BED RESTING QUIETLY. NO S/S OF DISTRESS. SEE ASSESS. WILL CONT TO MONITOR. CALL LIGHT IN REACH.
--- NOTE | 2017-08-06 09:32 | NUR ---
DR GRIGGS NOTIFIED OF CRITICAL DILANTIN LEVEL OF 31. NO NEW ORDERS RECEIVED.
--- NOTE | 2017-08-06 09:52 | NUR ---
PHYSICIAN WAS NOTIFIED OF DR. VIGIL CONSULT. RESPONSE OF NOTIFICATION WAS ON FLOOR AND IN TO SEE PATIENT. PAM ZHANG
--- NOTE | 2017-08-06 11:06 | NUR ---
[facility] stated they have no available beds at [facility] for this patient. Will contact daughter for another snf choice.
--- NOTE | 2017-08-06 11:31 | NUR ---
PHYSICAL THERAPY Debra seen this AM 1:1 for her physical therapy session. Pt supine in bed, bed alarm on. Transfer supine/sit MOD A X 1, cueing for sitting balance with MOD A X 1, X 6 min. Sit/stand X 2, standing balance MAX A X 1, with one sitting rest. Pt wanting back supine, bed alarm on, MOD A X 1. MARTINA LIANG SONG LYRICIST.
--- NOTE | 2017-08-06 11:48 | NUR ---
MARINO MCKEON [id number] Please refer to the physician's history and physical for past medical history, comorbid conditions, and allergies. Diagnosis: UTI METABOLIC ENCEPHALOPATHY CONFUSION HYPOKALEMIA Percy Score: 16,AT RISK WOUND DESCRIPTIONS: Location of the wound: right forearm Type of wound: skin tear Thickness: Partial Size: 0.9cm x 0.7cm x 0.1cm Tunneling: none Undermining: none Sinus Tract: none Presence of Exudate: Serosanguineous Amount: Light Color: Red Odor: None Periwound Skin Appearance: Normal Wound edges: approximated Pain (associated with wound): none at time of assessment How does patient state this happened? nurse stated patient scratched herself. Surface the patient is resting on: Position Pro SKIN PREVENTION RECOMMENDATION: 1. Pressure redistribution support surface as appropriate 2. Elevate heels 3. Remove boots/TEDS every shift and reapply 4. Head of bed 30 degrees as tolerated 5. Assess nutrition and hydration 6. Manage moisture 7. Avoid the use of containment devices while in bed 8. Use absorptive products on surfaces limit layers of linens on bed 9. Turn and reposition every 1-2 hours in bed and every 1 hour in chair as tolerated 10. Weight shifts every 15 minutes while up in chair 11. Offloading with pillows or device to keep heels elevated off bed 12. Monitor skin at least every shift 13. Inspect under medical devices twice a day WOUND TREATMENT RECOMMENDATIONS: Skin tear guideline NSS, sureprep, hydrogel optifoam gentle.
[2017-08-06 12:00] VITALS: BP 137/66
--- NOTE | 2017-08-06 12:48 | NUR ---
PATIENT SEEN 1:1 26 MINUTES THIS DATE. PATIENT IDENTIFIED BY NAME AND DATE OF . PATIENT COMPLETED FEEDING MIN A WITH MINIMAL VERBAL CUES REQUIRED TECHNIQUE AND USE UTENSILS. MINIMAL SPILLAGE NOTED. PATIENT DEMONSTRATED NO SIGN DISTRESS OR PAIN THIS DATE. CALL LIGHT WITHIN REACH AND BED RAILS IN PLACE. CURTIS MCCULLOUGH
--- NOTE | 2017-08-06 13:07 | NUR ---
[facility] stated they can take this patient at [facility], attempted to call daughter to discuss, but bimal is at work and won't be home until later this afternoon. Waiting for return phone call.
--- NOTE | 2017-08-06 15:07 | NUR ---
Patient accepted to [facility], pass/rr completed online in [employer] system. needs to complete 3 night stay. Can go tomorrow 08/07/17 if medically stable for discharge.
[2017-08-06 16:00] VITALS: BP 135/61
[2017-08-06 20:00] VITALS: BP 141/61
[2017-08-07] VITALS: BP 135/63
[2017-08-07 04:14] LABS: RBC, FOLATE HEMATOCRIT 36.8 % (34.0-46.6)
[2017-08-07 05:57] LABS: BASO % 0.3 % (0.0-1.0); EOS # 0.5 10*3/uL (0.0-0.4); EOS % 3.9 % (1.0-4.0); HEMATOCRIT 34.8 % (37.0-47.0); HEMOGLOBIN 11.8 g/dl (12.0-16.0); LYMPH # 1.8 10*3/uL (1.3-4.4); LYMPH % 15.5 % (27.0-41.0); MEAN CELL VOLUME 99.7 fl (81.0-99.0); MEAN CORPUSCULAR HGB 33.8 pg (27.0-31.0); MEAN CORPUSCULAR HGB CONC 33.9 g/dl (33.0-37.0); MEAN PLATELET VOLUME 10.6 fl (9.6-12.3); MONO % 8.2 % (3.0-9.0); NEUT # 8.3 10*3/uL (2.3-7.9); NEUT % 71.7 % (47.0-73.0); PLATELET COUNT AUTOMATED 158 10*3/uL (130-400); RED BLOOD COUNT 3.49 10*6/uL (4.10-5.10); RED CELL DISTRI WIDTH 14.4 % (0-14.5); WHITE BLOOD COUNT 11.6 10*3/uL (4.8-10.8)
[2017-08-07 06:22] LABS: BUN 9 mg/dl (7-24); CHLORIDE 104 mmol/L (98-107); CREATININE 0.49 mg/dL (0.55-1.02); POTASSIUM 4.2 mmol/L (3.5-5.1); SODIUM 141 mmol/L (136-145)
[2017-08-07 06:30] LABS: PHENYTOIN (DILANTIN) 27.3 ug/ml (10-20)
[2017-08-07 08:00] VITALS: BP 128/64
[2017-08-07 12:00] VITALS: BP 136/62
[2017-08-07] MEDS ORDERED: NAMENDA-5 PO (13:35)
[2017-08-07 16:00] VITALS: BP 132/61
--- NOTE | 2017-08-07 17:07 | NUR ---
REPORT GIVEN TO [facility] RECEIVING NURSE WHO IS ENROUTE TO TRANSPORT PT TO 3N BY WHEELCHAIR. DAUGHTER NOTIFIED OF TRANSPORT.
--- NOTE | 2017-08-07 17:09 | NUR ---
PT TO [facility] BY TRANSPORT.
[2017-08-07] MEDS ORDERED: REMERON15 M2 PO (18:21)
--- NOTE | 2017-08-09 07:15 | NUR ---
PHYSICAL THERAPY CO-SIGN I approve of the Phyical Therapy notes written above. MARCELINA MATT PT
--- NOTE | 2017-08-09 08:09 | NUR ---
OCCUPATIONAL THERAPY CO-SIGN I approve of the Occupational Therapy notes written above. JANE MCMANUS OTR/Obed
== END 2017-08-07 17:21 | disposition home health service (06) | DRG 689 ==
LOC: ED 14:09 → EDHOLD 16:40 → 4E 16:40
PROVIDERS: Emergency Medicine; Internal Medicine; Psychiatry & Neurology Psychiatry; ADMIT Internal Medicine
PROC: B54BZZA Ultrasonography of Right Lower Extremity Veins, Guidance (ICD-10-PCS; principal; 2017-08-04)
PROC: 06HM33Z Insertion of Infusion Device into Right Femoral Vein, Percutaneous Approach (ICD-10-PCS; principal; 2017-08-04)
DX: N39.0 Urinary tract infection, site not specified (principal); G93.41 Metabolic encephalopathy; F02.81 Dementia in other diseases classified elsewhere, unspecified severity, with behavioral disturbance; F33.9 Major depressive disorder, recurrent, unspecified; G30.9 Alzheimer's disease, unspecified; E87.6 Hypokalemia; I10 Essential (primary) hypertension; R73.9 Hyperglycemia, unspecified; K21.9 Gastro-esophageal reflux disease without esophagitis; W18.39XA Other fall on same level, initial encounter; T42.0X5A Adverse effect of hydantoin derivatives, initial encounter; Z88.5 Allergy status to narcotic agent; Z79.899 Other long term (current) drug therapy; Y93.89 Activity, other specified; Y92.098 Other place in other non-institutional residence as the place of occurrence of the external cause; Y99.8 Other external cause status

== ENCOUNTER 2017-08-07 16:45 | Inpatient (IN) | payer MEDICARE, MEDICAID ==
[~2017-08-07] VITALS: Ht 152.4 cm; Wt 46.7 kg
--- NOTE | ~2017-08-07 | CON ---
[place], [place] REPORT OF CONSULTATION [id number] UN[facility] #: [id number] ROOM: 311 DOCTOR: KIRAN HAYWOOD ED.D ([facility]) BIRTHDATE: [birth year] DOS: HISTORY OF PRESENT ILLNESS: The patient is an 87-year-old female referred by Dr. Vigil for competency evaluation. At the present time, this patient is a patient on the [facility] at [facility]. She does presently reside in [place] with her daughter, Priscilla Espinal. Priscilla was present during the interview. This patient worked in the past in a [employer]. Dr. Cabrales in [place], [place], is her physician. Her medical history is pertinent for bradycardia, major neurocognitive disorder-Alzheimer disease and hypertension. She is presently taking lisinopril, Zoloft, Lipitor, Dilantin and aspirin. She has no significant substance abuse issues. This patient was very lethargic and was not able to really answer questions. She has become increasingly confused according to her daughter. She was at [facility] in [place], [place] and was discharged home, but continued to decline. At the present time, she is clearly not able to make any informed healthcare decisions. The plan for this patient is to go to the [facility] here in [place] under Medicare for rehabilitation. Hopefully, her condition will improve and at that time, she can return home. If not, she will need to be placed in a facility in [place] due to the fact she is on [place] Medicaid. She is clearly not competent to make informed healthcare decisions and all decision should be made by her daughter due to the fact she does not have a healthcare power of ip attorney. She is not eligible for guardianship in [place] because she is [place] resident, but her daughter has been making decisions for quite sometime. In my opinion, the daughter should be consulted for all medical decisions. DIAGNOSIS: Major neurocognitive disorder-Alzheimer's disease. RECOMMENDATIONS: In my opinion, this patient is not competent to make informed healthcare decisions. Thank you very much for this consult. KIRAN HAYWOOD ED.D CM:CONSTR:REPORT OF CONSULTATION 1744 08/09/172027 interface DEIDRE VIGIL MD
--- NOTE | ~2017-08-07 | PR ---
[place], [place] PROGRESS NOTE NAME: MARINO MCKEON UNIT #: [id number] ROOM: 311 DOCTOR: DEIDRE VIGIL MD BIRTHDATE: [birth year] DOS: 08/11/2017 CHIEF COMPLAINT: "Oh good morning. Thank you for breakfast." SUMMARY OF THE VISIT: The patient was interviewed in the dining area where she sat in her Emily chair, awaiting breakfast. As I placed the tray in front of her, she smiled and touched my hand and thanked me for bringing her breakfast. She was pleasant and bright this morning and offered no other complaints. Nurses report that she did seem to have a better day yesterday and was much calmer and more redirectable. She is tolerating the current medication regimen well. MENTAL STATUS: She is alert and oriented to person, possibly place, but not time. Mood does seem to be trending towards euthymia. Affect is more appropriate. There are no symptoms of do or hypomania. There are no overt auditory or visual hallucinations. No delusions, no paranoia. Short term memory has gaps, otherwise she is intact. PLAN: I will increase the Namenda from 5 mg a day to 5 mg twice daily as I augment the effectiveness of the Exelon patch. Continue to engage in individual and lenz milieu activity with the plan to return to the least restrictive environment when psychiatrically stable. DEIDRE VIGIL MD CM:PNTRANS [phone] DEIDRE VIGIL MD 08/11/17 0856 interface
--- NOTE | ~2017-08-07 | PR ---
[place], [place] PROGRESS NOTE NAME: MARINO MCKEON UNIT #: [id number] ROOM: 311 DOCTOR: DEIDRE VIGIL MD BIRTHDATE: [birth year] DOS: 08/10/2017 CHIEF COMPLAINT: "Morning." SUMMARY OF THE VISIT: The patient was interviewed as she sat in a Emily chair in the dining area waiting for breakfast. She was alert and oriented to self. She engaged in brief superficial conversation, reporting no complaints. She was superficially pleasant for the most part with me. There was no agitation or aggression. She was limited in her speech and her responses tended to be very short and simple. MENTAL STATUS: She is alert and oriented to self. It is unclear if she realizes she is in the hospital and she is certainly not oriented to time. Mood does seem to be fairly euthymic. Affect appropriate. There are no symptoms of do or hypomania. There are no overt auditory or visual hallucinations. No delusions, no paranoia. She does process extremely slow and has sparsity of thought. Short term memory is exceedingly poor. PLAN: I will increase her Exelon patch from 4.6 to 9.5 mg a day, hoping to maximize potential benefits in maintaining or improving ADLs, behavior and cognition. I will in the future increase the Namenda in a similar fashion to try to maximize benefits. We will engage in individual and lenz milieu activity, returning to the least restrictive environment when psychiatrically stable. DEIDRE VIGIL MD CM:PNTRANS [id number] DEIDRE VIGIL MD 08/10/17 0838 interface
--- NOTE | ~2017-08-07 | DS ---
[place], [place] DISCHARGE SUMMARY [id number] UN[facility] #: [id number] ROOM: 311 DOCTOR: DEIDRE VIGIL MD BIRTHDATE: [birth year] DOS: 08/12/2017 CHIEF COMPLAINT: "I am so glad to see you." HISTORY OF PRESENT ILLNESS: This is an 87-year-old white female who was initially brought into the emergency room at [facility] by family after a fall at home. The patient has a history of frequent UTIs and oftentimes becomes unsteady on her feet when she has a UTI and becomes increasingly confused. Family was concerned that this was happening again and was not certain if she would be able to care for herself adequately. Once in the emergency room, she was diagnosed with a UTI and metabolic encephalopathy. She was started on Rocephin and was sent to the fourth floor. Once there, the patient continued to have periods of depression and crying as well as increased confusion. She is now admitted to the U for further evaluation and management. PAST MEDICAL HISTORY: Significant for folic acid deficiency, bradycardia, GERD, hypertension, protein-calorie malnutrition, and dementia. SUMMARY OF HOSPITAL COURSE: The patient was admitted to the unit where she had her Zoloft discontinued and she was started on Remeron. Additionally, Aricept was discontinued in lieu of Exelon patch. Exelon patch was started at 4.6 mg a day and brought up to 9.5 mg a day. This was augmented with Namenda 5 mg a day and brought up to a total dose of 5 mg twice daily. With the Remeron, the Exelon and the Namenda, the patient improved gradually. Her confusion lessened. She was much more pleasant and bright. She engaged readily in individual and group activities. She was sleeping well. Her appetite improved. She exhibited no side effects from any of these medications. There was no excess sedation, somnolence, lethargy, lightheadedness, dizziness or any other side effects. The ultimate plan then at discharge was to return home, ultimately awaiting a possible [place] [facility] [place] in [place]. MENTAL STATUS AT DISCHARGE: The patient was alert and oriented to person, place, but not time. Mood was strongly trending towards euthymia. Affect was much more appropriate. There was no symptom suggestive of hypomania or do. Likewise, there were no overt auditory or visual hallucinations noted. She did process slowly at times and at times, her responses were inappropriate to the questions that were being asked of her. Short-term memory was poor, otherwise she was intact. FINAL DIAGNOSES: Major depression, recurrent, and Alzheimer dementia. PLAN: The patient is being sent home. All of her prescriptions have been e-scribed to her pharmacy in [place]. A home health prescription has been written and she will have home health assistance. [place], [place] DISCHARGE SUMMARY NAME: MARINO MCKEON UNIT #: [id number] ROOM: 311 DOCTOR: DEIDRE VIGIL MD BIRTHDATE: [birth year] DEIDRE VIGIL MD CM:RICHAR 6 [phone] DEIDRE VIGIL MD 08/12/1731 interface
--- NOTE | ~2017-08-07 | PR ---
[place], [place] PROGRESS NOTE NAME: [facility] [id number] UNIT #: [id number] ROOM: 311 DOCTOR: DEIDRE VIGIL MD BIRTHDATE: [birth year] DOS: 08/09/2017 CHIEF COMPLAINT: "Morning." SUMMARY OF THE VISIT: The patient was interviewed as she reclined in a Emily chair in the group therapy room. She was somewhat somnolent and was resting, but did awake enough to engage in superficial conversation. She offered no complaints. She did report that she slept well last night. Nurses report that she remains confused and disoriented. MENTAL STATUS: She is alert and oriented to person, not necessarily to place or time. Mood is fairly euthymic. Affect appropriate. There is no do or hypomania. There are no auditory or visual hallucinations. No delusions are voiced. Short term memory is exceedingly poor. PLAN: A review of past labs reveal that she had a low vitamin D level in May. She is not on any vitamin D replacement, so I will start vitamin D 50,000 International Units weekly. I will discontinue Aricept in lieu of Exelon patch 4.6 mg a day and rapidly titrate this up into its maximum dose. The patient is on Dilantin chronically. I will check an RBC, folate level to rule out the possibility of folate deficiency. We will engage in individual and lenz milieu activity with the plan to return to the least restrictive environment when psychiatrically stable. DEIDRE VIGIL MD CM:[id number] DEIDRE VIGIL MD 08/09/17 1002 interface
[~2017-08-07 16:45] MED LIST changes: +NAMENDA-5 PO; +ZOLOFT100 MG PO
[2017-08-07 17:28] VITALS: BP 144/64
--- NOTE | 2017-08-07 18:09 | NUR ---
AVANIMARINO TOBIN a 87 year old F admitted via wheel chair from the OTHER (4TH FLOOR [facility]) as a emergency 72 hr. hold admission. Arrived on unit at 1728. ALLERGIES: NARCOTICS. Vital signs are: 97.9-80-18 144/64. PATIENT UNABLE TO SIGN ANY ADMISSION PAPERS DUE TO CONFUSION. Admitted under the services of Dr. MUSA VALDOVINOS,[facility]. A search was conducted and hazardous articles were removed. Client was oriented to the unit. HUMBERTO MONTENEGRO
--- NOTE | 2017-08-07 18:11 | NUR ---
PATIENT ADM TO UNIT WHERE SHE IS NOTED TO BE VERY CONFUSED. ALERT AND ORIENTED TO PERSON ONLY. ABLE TO ANWSER MOST QUESTIONS APPROPRIATELY. SPEECH IS SLURRED, GARBLED, AND NONSENSICAL UPON INTERACTIONS. FALL PRECAUTIONS INITIATED D/T HIGH FALL RISK PER ASSESSMENT AND RECENT FALL AT HOME. PT WAS ACCEPTED TO [facility] AT [facility] AND [facility] WAS COMPLETED ON THE 4TH FLOOR.
[2017-08-07] MEDS ORDERED: REMERON15 M2 PO (18:21)
--- NOTE | 2017-08-07 18:22 | NUR ---
ADMISSION ORDERS RECEIVED FROM CNP. ABA
--- NOTE | 2017-08-07 18:51 | NUR ---
CALLED HOSPITALIST CELL NUMBER 1, MADE AWARE OF NEW CONSULT FOR , NEW ORDERS RECEIVED WITNESSED BY Anisa GUO.
[2017-08-07 20:00] VITALS: BP 126/53
--- NOTE | 2017-08-08 00:19 | NUR ---
24 HR chart check completed.
--- NOTE | 2017-08-08 06:51 | NUR ---
PT HAS BEEN OBSERVED ON Q 15 MIN CHECKS & SLEPT QUIETLY IN HER ROOM FROM 11:00- 0130. ASSISTED TO ASHLEY CHAIR & SAT QUIELTY WITH STAFF FOR THE REST OF THE NIGHT & FELL ASLEEP APPROX 4:30. PT DID HAVE A LARGE BOWEL MOVEMENT PRIOR TO GOING TO SLEEP.
[2017-08-08 07:48] VITALS: BP 123/62
--- NOTE | 2017-08-08 10:10 | NUR ---
DR. LONG AND DR. MAY ON UNIT TO SEE PT AT THIS TIME. MADE AWARE OF DILANTIN LEVEL 23.1 THIS AM.
--- NOTE | 2017-08-08 15:51 | NUR ---
[facility] STATES OK TO ORDER ROUTINE PRN MEDICATIONS - TYLENOL, MOM, MAALOX PER DR. VIGIL'S ORDER SET THESE HAVE NOT BEEN ORDERED FOR THIS PT.
--- NOTE | 2017-08-08 16:25 | NUR ---
PT IS ALERT AND ORIENTED TO PERSON ONLY. CONFUSED IN ALL OTHER ASPECTS. ST/LT MEMORY DEFICITS NOTED. RESPIRATIONS EASY ON ROOM AIR. MOOD IS DEPRESSED AND ANXIOUS AT TIMES. AFFECT IS FLAT, SAD AND TEARFUL AT TIMES. SPEECH IS SLURRED, GARBLED, DIFFICULT TO UNDERSTAND AT TIMES. PT DENIES SI/HI. PT DENIES HALLUCINATIONS, NO RESPONSE TO INTERNAL STIMULI NOTED. NO PARANOIA/DELUSIONS NOTED. PT IS MEDICATION COMPLIANT WITH MEDS GIVEN CRUSHED IN PUDDING. PT CRIES OUT WHEN SHE NEEDS TO BE TOLIETED. PT IS BOTH CONTINENT AND INCONTINENT. INCONTINENCE CARE PROVIDED. PT IN WHEELCHAIR FOR SAFETY D/T UNSTEADY GAIT, HIGH FALL RISK PRECAUTIONS MAINTIANED. PT RELIANT ON STAFF FOR ASSISTANCE WITH ADLS, PT SHOWERED THIS AM. HAIR WASHED, COMBED OUT, MOUTH CARE PROVIDED. PT REQUIRES ASSISTANCE WITH FEEDING. PT BEGAN CRYING OUT APPROX 1400, UPON ASSESSMENT PT C/O GENERALIZED PAIN ALL OVER, PT GIVEN PRN TYLENOL 650MG PO AT 1608, WILL MONITOR FOR EFFECTIVENESS. Q15 MIN SAFETY CHECKS MAINTAINED, REFER TO [facility] FLOWSHEET FOR SPECIFIC MONITORING.
--- NOTE | 2017-08-08 16:54 | NUR ---
SHIFT CHART CHECK COMPLETED.
--- NOTE | 2017-08-08 16:54 | NUR ---
TYLENOL HAS BEEN EFFECTIVE. PT SITTING QUIETLY EATING DINNER, PT FEEDING SELF INDEPENDENTLY AT THIS TIME.
[2017-08-08 20:12] VITALS: BP 127/63
--- NOTE | 2017-08-08 21:11 | NUR ---
24 HR chart check completed.
[2017-08-09 05:16] LABS: BASO # 0.1 10*3/uL (0.0-0.1); BASO % 0.6 % (0.0-1.0); EOS # 0.5 10*3/uL (0.0-0.4); EOS % 4.8 % (1.0-4.0); HEMATOCRIT 35.7 % (37.0-47.0); LYMPH # 1.7 10*3/uL (1.3-4.4); LYMPH % 16.4 % (27.0-41.0); MEAN CELL VOLUME 98.1 fl (81.0-99.0); MEAN CORPUSCULAR HGB CONC 33.6 g/dl (33.0-37.0); MEAN PLATELET VOLUME 10.4 fl (9.6-12.3); MONO # 0.7 10*3/uL (0.1-1.0); MONO % 6.4 % (3.0-9.0); NEUT # 7.6 10*3/uL (2.3-7.9); NEUT % 71.5 % (47.0-73.0); PLATELET COUNT AUTOMATED 186 10*3/uL (130-400); RED BLOOD COUNT 3.64 10*6/uL (4.10-5.10); RED CELL DISTRI WIDTH 14.2 % (0-14.5); WHITE BLOOD COUNT 10.6 10*3/uL (4.8-10.8)
--- NOTE | 2017-08-09 05:18 | NUR ---
PT HAS BEEN OBSERVED ON Q 15 MIN CHECKS & HAS REMAINED AWAKE MOST OF THE SHIFT WITH STAFF REMAINING WITH HER FOR SAFETY. PT DID REST IN BED FOR APPROX 1 1/2 HOURS. PRESENTLY SLEEPING IN A ASHLEY CHAIR. NOTED TO FALL ASLEEP APPROX 0400.
[2017-08-09 05:30] LABS: BUN 12 mg/dl (7-24); CHLORIDE 102 mmol/L (98-107); CREATININE 0.45 mg/dL (0.55-1.02); POTASSIUM 3.9 mmol/L (3.5-5.1); SODIUM 139 mmol/L (136-145)
[2017-08-09 05:31] LABS: PHOSPHOROUS 2.5 mg/dL (2.5-4.9)
[2017-08-09 08:13] VITALS: BP 145/71
--- NOTE | 2017-08-09 10:09 | NUR ---
NOTIF[facility] D[facility]
--- NOTE | 2017-08-09 12:11 | NUR ---
MARINO MCKEON [id number] Please refer to the physician's history and physical for past medical history, comorbid conditions, and allergies. Diagnosis: ACUTE PSYCHOSIS Percy Score: 12,HIGH RISK WOUND DESCRIPTIONS: Location of the wound: right forearm Type of wound: skin tear Thickness: Partial Size: 0.7cm x 1.0cm x 0.1cm Tunneling: none Undermining: none Sinus Tract: none Presence of Exudate: Serosanguineous Amount: Light Color: Red Odor: None Periwound Skin Appearance: Normal Wound edges: approximated Pain (associated with wound): none at time of assessment How does patient state this happened? pt unable to answer how patient got this area Surface the patient is resting on: Proform SKIN PREVENTION RECOMMENDATION: 1. Pressure redistribution support surface as appropriate 2. Elevate heels 3. Remove boots/TEDS every shift and reapply 4. Head of bed 30 degrees as tolerated 5. Assess nutrition and hydration 6. Manage moisture 7. Avoid the use of containment devices while in bed 8. Use absorptive products on surfaces limit layers of linens on bed 9. Turn and reposition every 1-2 hours in bed and every 1 hour in chair as tolerated 10. Weight shifts every 15 minutes while up in chair 11. Offloading with pillows or device to keep heels elevated off bed 12. Monitor skin at least every shift 13. Inspect under medical devices twice a day WOUND TREATMENT RECOMMENDATIONS: continue current orders.
--- NOTE | 2017-08-09 13:12 | NUR ---
Goals/Exercise/Positive thoughts & Affirmations Patient did not attend group this morning. Patient was asleep in her room. At the request of nursing staff we were to kindly let her sleep
--- NOTE | 2017-08-09 13:48 | NUR ---
SPEECH PATHOLOGY Screening complete. Reports indicate baseline confusion, which remains. There are no reports of dysphagia. Speech pathology services are not recommended at this time. DEANA TSANG MSCCC-WHIP OPERATOR
--- NOTE | 2017-08-09 15:12 | NUR ---
Positive Self-Talk Patient was in attendence for a very short time. Patient began cryin out with no redirection so patient was removed to the quiet room
--- NOTE | 2017-08-09 15:22 | NUR ---
vivian completed and faxed. BALJINDER left vm for angela Judge, [place] [facility] [place] to see if pt. will need a Pre-cert.
--- NOTE | 2017-08-09 16:00 | NUR ---
DR HAYWOOD UP TO DO COMPETENCY EVAL
--- NOTE | 2017-08-09 16:19 | NUR ---
CONFUSED, YELLS AND CRIES OUT, PT FAMILY CAME TO VISIT THEY WANT HER UP MORE , PT DEMANDING TO LAY IN BED, MED COMPLAINT, NOT COMBATIVE. MUMBLING SPEECH, INCONTINENT,
[2017-08-09 19:49] VITALS: BP 122/54
--- NOTE | 2017-08-10 06:20 | NUR ---
24 HR chart check completed.
--- NOTE | 2017-08-10 06:26 | NUR ---
PT HAS BEEN OBSERVED ON Q 15 MIN CHECKS & HAS SLEPT QUIETLY THROUGHOUT THE SHIFT IN HER BED SINCE THE ONSET OF THE SHIFT. NOTED TO HAVE A FEW BRIEF AWAKENINGS WITH SMALL EPISODES OF CRYING BUT HAS RETURNED TO SLEEP. HAS BEEN INCONTINENT OF URINE X 2 & PROVIDED WITH HYGIENE. GIVEN BED BATH THIS AM.
[2017-08-10 07:10] LABS: RBC, FOLATE HEMATOCRIT 36.7 % (34.0-46.6)
[2017-08-10 07:56] VITALS: BP 117/54
--- NOTE | 2017-08-10 08:30 | NUR ---
MICHAELA MIGUEL DYED RAW STOCK BLOWER FEEDER ON UNIT TO SEE PATIENT.
--- NOTE | 2017-08-10 10:39 | NUR ---
Serina Smith from [facility] called back and they will not be able to accept pt. afterazalia due to the pt's [place] insuarnce and lack of skilled day coverage. Serina states that she may have a bed open by tomorrow or at [facility] in [place] and if so, pt. can come there, if not the d/c plan will be for pt. to reun home with dtr. Wells and Home health. Referrals to be sent out today for HH referrals in [place]. BALJINDER spoke with pt dtr. Wells. who states that she has to work tomorrow and asked if pt. can come home . SW to pass along to Dr. Martinez. pt will transported via ambulance or pt darrick on if pt dtr has to work.
--- NOTE | 2017-08-10 11:00 | NUR ---
HH referral sent to [facility] and left for ss at [facility] to see what HH agency pt. was referred to when she left the hospital there per pt. dtr's request. pt drt. does not have a preference on what HH agency.
--- NOTE | 2017-08-10 11:05 | NUR ---
davidrr received back and pt approved for [place] stay if waraanted.
--- NOTE | 2017-08-10 11:16 | NUR ---
Rec'd call back from [facility] . They will acept pt's insurance. Just let them know when pt. is d/c'ed
--- NOTE | 2017-08-10 11:19 | NUR ---
pt to be d/c'ed Wed/ to either [facility] in [place] or home with dtr with [facility] .
--- NOTE | 2017-08-10 11:35 | NUR ---
Holiday remenissing/orientation and goals Patient present in group this morning however slept throughout group. Patient did engage breifly in discussion of holidays however only briefly. Patient oriented to person and place when asked.
--- NOTE | 2017-08-10 13:26 | NUR ---
PATIENT IS ALERT TO PERSON ONLY WITH CONFUSION. RESPIRATIONS ARE EASY, NON-LABORED ON ROOM AIR. LONG/SHORT TERM MEMORY DEFICITS. MOOD IS STABLE. DENIES ANY HALLUCINATIONS, DELUSIONS, HI/SI OR PAIN. APPETITE IS GOOD WITH ADEQUATE FLUIDS. 1-2 PERSON ASSIST WITH ACTIVITIES OF DAILY LIVING. 1 ASSIST WITH MEALS WITH MUCH ENCOURAGEMENT. INCONTINENT OF BOWEL AND BLADDER. MEDICATION COMPLAINT WITH EDUCATION PROVIDED. CONTINUE TO MONITOR FOR MOOD AND BEHAVIORS AND PROVIDE ONE ON ONE TO EXPRESS FEELING AND REDIRECT NEEDED. Q 15 MINUTE SAFETY CHECKS MAINTAINED.
--- NOTE | 2017-08-10 15:06 | NUR ---
Coping skills Patient present in activity room however asleep throughout group.
--- NOTE | 2017-08-10 16:10 | NUR ---
Shift chart check completed.
[2017-08-10 20:06] VITALS: BP 116/86
--- NOTE | 2017-08-10 21:31 | NUR ---
24 HR chart check completed.
--- NOTE | 2017-08-11 06:31 | NUR ---
PT HAS BEEN OBSERVED ON Q 15 MIN CHECKS & HAS SLEPT IN BED PAST 2099. SHE HAS HAD BRIEF MOMENTS OF WAKING UP & CRYING BUT HAS RETURNED TO SLEEP. SLEEP HAS IMPROVED TONIGHT COMPARED TO THE PAST 3 NIGHTS OBSERVED BY THIS RN.
[2017-08-11 07:52] VITALS: BP 133/62
--- NOTE | 2017-08-11 11:08 | NUR ---
Stress/anger management, goals and orientation/trivia group Patient present during group with minimal attempts for participation. Patient unaware of present time or location. Patient awake through entire group.
--- NOTE | 2017-08-11 12:09 | NUR ---
BALJINDER spoke with Serina Smith from [facility] to see if there will be a bed avaialable tomorrow at [facility], Serina states there is not. BALJINDER left vm for pt. dtr. for pt to be d/c'ed tomorrow home with [facility]. pt dtr. to call back with a time that pt. can be picked up or someone to be home for pt's arrival.
--- NOTE | 2017-08-11 13:28 | NUR ---
PATIENT IS ALERT TO PERSON WITH INTERMITTENT CONFUSION; ABLE TO ANSWER QUESTIONS APPROPRIATELY. RESPIRATIONS ARE EASY, NON-LABORED ON ROOM AIR. LONG/SHORT TERM MEMORY DEFICITS NOTED. DENIES ANY HALLUCINATIONS, DELUSIONS, HI/SI OR PAIN. INTERACTIVE WITH STAFF AND OTHER PATIENTS, PARTICIPATES IN GROUP SESSSIONS. 1-2 PERSON ASSIST WITH ACTIVITIES OF DAILY LIVING. INCONTINENT OF BOWEL AND BLADDER. MEDICATION COMPLIANT, TAKES MEDICATIONS WHOLE IN APPLE SAUCE. PATIENT IS UP IN ASHLEY CHAIR RESTING WITH FEEL ELEVATED. Q 15 MINUTE SAFETY CHECKS. CONTINUE TO MONITOR PATIENT'S BEHAVIOR AND REDIRECT NEEDED.
--- NOTE | 2017-08-11 13:33 | NUR ---
BALJINDER rec'd call back from pt dtr. Priscilla who asked that pt. be transported by ambulance and that her dtr, ptChrist strickland will be there to accept pt. at home, if Priscilla gets called into work. BALJINDER will contact a [place] ambulance company to transport pt. Maxwell Loco, editorial project manager notified of pt's d/c for tomorrow.
--- NOTE | 2017-08-11 14:57 | NUR ---
SW spoke with [facility], they will not transport pt. depsite pt. being a two assist and neeeding supervision. SW called [facility] who will transport due to pt. being a two assist and family not able to transport pt. and pt. needing supervision. pt. will be d/c'ed at 3pm to return home via [facility]. pt dtr. states, we cannot transport her.
--- NOTE | 2017-08-11 15:01 | NUR ---
Games and relaxation Patient attended and actively participated in group. Patient with smiling and pleasant affect throughout group. Patient difficult to understand due to difficulty with speech but able to make needs know and that they enjoyed the activities.
--- NOTE | 2017-08-11 15:59 | NUR ---
Shift chart check completed.
[2017-08-11 20:11] VITALS: BP 127/62
--- NOTE | 2017-08-11 20:30 | NUR ---
LAUGHING AND HAPPY IN BED. MOVING ALL EXTREMETIES. MEDICATION COMPIANT AND ATE WELL FOR SNACK. SPEECH GARBLED BUT ABLE TO UNDERSTAND A FEW WORDS. CLAPPING AND PATTING STAFFS HAND DURING INTERACTION.. DID UNDERSTAND HER SAY "I PRAYED TO GOD FOR HELP AND HE GAVE IT TO ME". MUCH IMPROVED OVER LAST COUPLE DAYS
--- NOTE | 2017-08-12 04:27 | NUR ---
24 HR chart check completed.
--- NOTE | 2017-08-12 06:09 | NUR ---
SLEPT WELL PAST 2114PM
[2017-08-12 08:04] VITALS: BP 117/53
[2017-08-12] MEDS ORDERED: RIVASTIGMINE1 EAC1 T (08:12)
[2017-08-12] MEDS ORDERED: NAMENDA-5 PO (08:12)
[2017-08-12] MEDS ORDERED: MIRTAZAPINE15 M2 PO (08:12)
[2017-08-12] MEDS ORDERED: Vitamin D PO (08:12)
--- NOTE | 2017-08-12 10:22 | NUR ---
PATIENT IS SLEEPY THIS MORNING. ORIENTED TO SELF ONLY AT THIS TIME. MEDICATION COMPLIANT WITHOUT DIFFICULTY. NO HALLUCINATIONS, DELUSIONS, OR BEHAVIORS NOTED. SPEECH REMAINS SLURRED AND GARBLED. CALM AND COOPERATIVE WITH STAFF. ABLE TO ANWSER SIMPLE QUESTIONS APPROPRIATELY. HAS ALL TREATMENT PLAN GOALS FOR DISCHARGE. APPETITE GOOD FOR BREAKFAST, TAKING FLUIDS WELL. SEE [facility] FLOWSHEET FOR SPECIFIC MONITORING.
--- NOTE | 2017-08-12 10:25 | NUR ---
pt to be d/c'ed today at 3pm via [facility]. pt. will be followed by [facility] tomorrow. pt. pcp will prescribe both psychiatric and medical med's according to nurse at Dr. Cabrales's office. pt. is bed-bound and will be seen thru Visiting nurses.
--- NOTE | 2017-08-12 11:09 | NUR ---
Goals,Exercise,and Trivia Patient was in attendence but did not participate. Patient was awake at very begining of group but then fell asleep.
--- NOTE | 2017-08-13 11:36 | NUR ---
Toe Stapler Note: Faxed dicharge information packet to Dr. Cabrales's office today.
== END 2017-08-12 15:13 | disposition home or self-care (01) | DRG 56 ==
LOC: 3N 16:45
PROVIDERS: Internal Medicine; ADMIT Psychiatry & Neurology Psychiatry
DX: G30.9 Alzheimer's disease, unspecified (principal); E43 Unspecified severe protein-calorie malnutrition; G93.41 Metabolic encephalopathy; F02.81 Dementia in other diseases classified elsewhere, unspecified severity, with behavioral disturbance; N39.0 Urinary tract infection, site not specified; F33.9 Major depressive disorder, recurrent, unspecified; F23 Brief psychotic disorder; K21.9 Gastro-esophageal reflux disease without esophagitis; I10 Essential (primary) hypertension; E53.8 Deficiency of other specified B group vitamins; E55.9 Vitamin D deficiency, unspecified; R74.0 Nonspecific elevation of levels of transaminase and lactic acid dehydrogenase [LDH]; Z79.82 Long term (current) use of aspirin; Z68.20 Body mass index [BMI] 20.0-20.9, adult; Z81.8 Family history of other mental and behavioral disorders; Z88.5 Allergy status to narcotic agent; Z79.899 Other long term (current) drug therapy; T42.0X Poisoning by, adverse effect of and underdosing of hydantoin derivatives

== ENCOUNTER 2018-06-24 15:46 | Emergency (ER) | payer MEDICARE, MEDICAID ==
[~2018-06-24] VITALS: Ht 157.4 cm; Wt 56.7 kg
[~2018-06-24 15:46] MED LIST changes: +MIRTAZAPINE15 M2 PO; +REMERON15 M2 PO; +RIVASTIGMINE1 EAC1 T; +Vitamin D PO
== END 2018-06-24 16:23 | disposition expired ==
LOC: ED 15:46
DX: I46.9 Cardiac arrest, cause unspecified (principal); F03.90 Unspecified dementia, unspecified severity, without behavioral disturbance, psychotic disturbance, mood disturbance, and anxiety; I10 Essential (primary) hypertension; E78.00 Pure hypercholesterolemia, unspecified; Z85.3 Personal history of malignant neoplasm of breast